=== PATIENT | male | born 1975 | race Caucasian/White ===

== ENCOUNTER 2017-11-29 20:21 | Emergency (ER) | payer SELFPAY ==
--- NOTE | 2017-11-29 21:45 | NUR ---
ATTEMPTED TO CALL PATIENT X 3. NO PATIENT PRESENT IN WAITING ROOM AT THIS TIME. 1ST CALL [phone], 2ND CALL [phone], 3RD CALL [phone]
== END 2017-11-29 21:49 | disposition left against medical advice (07) ==
LOC: ER 20:24
DX: Z53.21 Procedure and treatment not carried out due to patient leaving prior to being seen by health care provider (principal)